=== PATIENT | male | born 1950 | race Caucasian/White ===

== ENCOUNTER → 2017-06-10 | Outpatient (REF) ==
[2015-09-30 10:38] VITALS: BP 132/85
[~2017-06-10] MED LIST: DYMISTA1 SPR NS; HYDROCHLOROTH12.5 M2 PO; NEXIUM 20MG CAP20 MG PO; NOVAPLUS DE100 MG/ML IM; ZESTRIL 10MG10 MG PO
== END ==
LOC: LAB 09:28
DX: Z00.00 Encounter for general adult medical examination without abnormal findings (principal)